=== PATIENT | male | born 1955 | race Caucasian/White ===

== ENCOUNTER → 2017-02-13 | Outpatient (CLI) | payer BC, OTHER ==
--- NOTE | 2017-02-13 17:33 | PN ---
PROGRESS NOTE A 61-year-old male patient diagnosed as having obstructive sleep apnea coming in for a compliancy check. His disease is moderate to severe. AHI is 50 and worse in the supine body position. He was given CPAP at a pressure of 11 cm of water. On today's followup the patient is doing great. He is looking forward to go to sleep to uses his CPAP machine. His sleep quality is improved. His snoring has resolved. He is waking up alert and awake. He does not fall asleep while driving. He has lost 3 pounds. Compliance data shows that average CPAP use around 7.8 hours per night. The leak is only 20 L/minutes while using AirFit P10 nose mask and his AHI while on treatment is down to 0.2. PHYSICAL EXAMINATION: BP is 129/72, pulse is 70, respirations 16, weight is 266, temperature 98.4. Rifle score is 2. Saturation 94% on room air. GENERAL APPEARANCE: Calm, comfortable, in no acute distress. HEENT: Negative for JVD. No goiter or neck masses. LUNGS: Clear to auscultation. HEART: Sounds regular rhythm. Normal S1, S2. No S3, S4. No murmurs. ABDOMEN: Soft, nontender. No organomegaly. EXTREMITIES: No edema. No cyanosis or clubbing. NEUROLOGIC: AOx3. No focal neurological deficits. SKIN: Negative for any wounds or ulcers. IMPRESSION: Symptomatic obstructive sleep apnea, moderate in severity. AHI of 50 worse in the supine body position. The patient is receiving successful CPAP therapy at a pressure of 11 cm of water. PLAN: 1. Continue CPAP with a pressure of 11. 2. Encourage weight loss. 3. Compliance data was checked and treatment is satisfactory. 4. We will see him back in followup in a year's time if needed. Otherwise follow up with primary care physician. MMODL / IJN: [id number] /
== END ==
LOC: SLEEP 16:06
PROVIDERS: ATTEND Internal Medicine Critical Care Medicine
DX: G47.33 Obstructive sleep apnea (adult) (pediatric) (principal)

== ENCOUNTER 2021-06-24 16:04 | Emergency (ER) | payer BC ==
[2021-06-24] MEDS ORDERED: SODIUM CHLORIDE 0.9% 1,000 ML IV STA (16:24)
[2021-06-24] MEDS ORDERED: KETOROLAC 15 MG/ML 1 ML VIAL IVP STA (16:24)
--- NOTE | 2021-06-24 16:24 | ED ---
General Adult HPI - General Chief complaint: Urogenital Stated complaint: kidney stones Time Seen by Provider: 06/24/21 16:15 Source: patient, RN notes reviewed, old records reviewed Mode of arrival: ambulatory Limitations: no limitations - History of Present Illness Initial comments: 66-year-old male presents with left flank pain for one week. Patient states he was told he had an obstructive kidney stone on the left at [facility] yesterday. They wanted to send him to [facility] for stenting but he opted not to go. He came here with increased left flank pain hoping that we could treat him without having to go to [place] for the procedure. He denies any fevers or vomiting does have some nausea with pain. He has been taking [place] and Flomax with no relief. -: week(s) (1) Location: left (flank) Radiation: non-radiation Severity scale (1-10): 6 Consistency: constant Improves with: none Worsens with: none Associated Symptoms: nausea/vomiting Treatments Prior to Arrival: other ([facility] yesterday had CAT scan labs drawn) - Related Data Previous Rx's Medication Instructions Recorded Ibuprofen [Motrin] 800 mg PO Q6HR #30 tab 06/24/21 Allergies Allergy/AdvReac Type Severity Reaction Status Date / Time hydromorphone [From Dilaudid] Allergy Hallucinati Verified 06/24/21 16:05 ons Review of Systems ROS Statement: Those systems with pertinent positive or pertinent negative responses have been documented in the HPI. ROS Other: All systems not noted in ROS Statement are negative. Past Medical History Past Medical History: Diabetes Mellitus, Hyperlipidemia, Hypertension History of Any Multi-Drug Resistant Organisms: None Reported Past Surgical History: Heart Catheterization With Stent Additional Past Surgical History / Comment(s): AAA, heart valve, cabg Past Psychological History: No Psychological Hx Reported Smoking Status: Never smoker Past Alcohol Use History: None Reported Past Drug Use History: None Reported General Exam Limitations: no limitations General appearance: alert, in no apparent distress Respiratory exam: Present: normal lung sounds bilaterally. Absent: respiratory distress, accessory muscle use Cardiovascular Exam: Present: regular rate GI/Abdominal exam: Present: soft, distended, normal bowel sounds. Absent: tenderness, rigid Back exam: Present: normal inspection, full ROM, CVA tenderness (L). Absent: tenderness, CVA tenderness (R), rash noted Neurological exam: Present: alert, oriented X3 Psychiatric exam: Present: normal affect, normal mood Skin exam: Present: warm, dry, normal color. Absent: cyanosis, diaphoretic Course Vital Signs 06/24/21 06/24/21 16:06 18:35 Temperature 98.7 F 98.1 F Pulse Rate 94 90 Respiratory 20 16 Rate Blood Pressure 184/82 168/78 O2 Sat by Pulse 97 98 Oximetry Medical Decision Making - Medical Decision Making Patient presents to the emergency room with left flank pain after diagnosed yesterday at [facility] with an obstructing kidney stone. Ultrasound of the renals and bladder show no renal calculi. There is no evidence of hydronephrosis on the right or left kidney. There is an asymmetrically larger left kidney which may be seen with infection. However there is no evidence of leukocytosis. Urinalysis shows no evidence of infection. Patient is afebrile. He states he has no pain at this time after Toradol and IV fluids were given. He was directed to follow-up with urology and continue his Flomax. A prescription for Motrin was given. Case discussed with Dr. Sanchez. Patient is agreeable to this plan of care. - Lab Data Result diagrams: 06/24/21 17:21 06/24/21 17:21 Lab Results 06/24/21 06/24/21 06/24/21 Range/Units 17:21 17:21 17:21 WBC 7.0 (3.8-10.6) k/uL RBC 5.07 (4.30-5.90) m/uL Hgb 15.9 (13.0-17.5) gm/dL Hct 46.2 (39.0-53.0) % MCV 91.3 (80.0-100.0) fL MCH 31.4 (25.0-35.0) pg MCHC 34.4 (31.0-37.0) g/dL RDW 13.5 (11.5-15.5) % Plt Count 109 L (150-450) k/uL MPV 7.2 Neutrophils % 80 % Lymphocytes % 9 % Monocytes % 7 % Eosinophils % 1 % Basophils % 0 % Neutrophils # 5.6 (1.3-7.7) k/uL Lymphocytes # 0.7 L (1.0-4.8) k/uL Monocytes # 0.5 (0-1.0) k/uL Eosinophils # 0.1 (0-0.7) k/uL Basophils # 0.0 (0-0.2) k/uL Sodium 137 (137-145) mmol/L Potassium 4.0 (3.5-5.1) mmol/L Chloride 102 (98-107) mmol/L Carbon Dioxide 24 (22-30) mmol/L Anion Gap 11 mmol/L BUN 16 (9-20) mg/dL Creatinine 1.62 H (0.66-1.25) mg/dL Est GFR (CKD-EPI)AfAm 51 (>60 ml/min/1.73 sqM) Est GFR (CKD-EPI)NonAf 44 (>60 ml/min/1.73 sqM) Glucose 100 H (74-99) mg/dL Plasma Lactic Acid Jerrell (0.7-2.0) mmol/L Calcium 9.0 (8.4-10.2) mg/dL Total Bilirubin 1.0 (0.2-1.3) mg/dL AST 24 (17-59) U/L ALT 16 (4-49) U/L Alkaline Phosphatase 84 (38-126) U/L Total Protein 6.7 (6.3-8.2) g/dL Albumin 4.0 (3.5-5.0) g/dL Urine Color Yellow Urine Appearance Clear (Clear) Urine pH 5.5 (5.0-8.0) Ur Specific [place] 1.022 (1.001-1.035) Urine Protein 1+ H (Negative) Urine Glucose (UA) Negative (Negative) Urine Ketones Negative (Negative) Urine Blood Small H (Negative) Urine Nitrite Negative (Negative) Urine Bilirubin Negative (Negative) Urine Urobilinogen <2.0 (<2.0) mg/dL Ur Leukocyte Esterase Negative (Negative) Urine RBC 1 (0-5) /hpf Urine WBC 1 (0-5) /hpf Urine Bacteria Rare H (None) /hpf Urine Mucus Rare H (None) /hpf 06/24/21 Range/Units 17:21 WBC (3.8-10.6) k/uL RBC (4.30-5.90) m/uL Hgb (13.0-17.5) gm/dL Hct (39.0-53.0) % MCV (80.0-100.0) fL MCH (25.0-35.0) pg MCHC (31.0-37.0) g/dL RDW (11.5-15.5) % Plt Count (150-450) k/uL MPV Neutrophils % % Lymphocytes % % Monocytes % % Eosinophils % % Basophils % % Neutrophils # (1.3-7.7) k/uL Lymphocytes # (1.0-4.8) k/uL Monocytes # (0-1.0) k/uL Eosinophils # (0-0.7) k/uL Basophils # (0-0.2) k/uL Sodium (137-145) mmol/L Potassium (3.5-5.1) mmol/L Chloride (98-107) mmol/L Carbon Dioxide (22-30) mmol/L Anion Gap mmol/L BUN (9-20) mg/dL Creatinine (0.66-1.25) mg/dL Est GFR (CKD-EPI)AfAm (>60 ml/min/1.73 sqM) Est GFR (CKD-EPI)NonAf (>60 ml/min/1.73 sqM) Glucose (74-99) mg/dL Plasma Lactic Acid Jerrell 1.3 (0.7-2.0) mmol/L Calcium (8.4-10.2) mg/dL Total Bilirubin (0.2-1.3) mg/dL AST (17-59) U/L ALT (4-49) U/L Alkaline Phosphatase (38-126) U/L Total Protein (6.3-8.2) g/dL Albumin (3.5-5.0) g/dL Urine Color Urine Appearance (Clear) Urine pH (5.0-8.0) Ur Specific [place] (1.001-1.035) Urine Protein (Negative) Urine Glucose (UA) (Negative) Urine Ketones (Negative) Urine Blood (Negative) Urine Nitrite (Negative) Urine Bilirubin (Negative) Urine Urobilinogen (<2.0) mg/dL Ur Leukocyte Esterase (Negative) Urine RBC (0-5) /hpf Urine WBC (0-5) /hpf Urine Bacteria (None) /hpf Urine Mucus (None) /hpf Disposition Clinical Impression: Kidney stone on left side Disposition: HOME SELF-CARE Condition: Good Instructions (If sedation given, give patient instructions): Kidney Stones (ED) Additional Instructions: Continue taking the Flomax as previously prescribed. Take the Motrin as prescribed today. Increase your fluid intake. Follow-up with urology and your primary care doctor next week. Return to the emergency room with any new or concerning symptoms including increased pain, fevers or inability to urinate. Prescriptions: Ibuprofen [Motrin] 800 mg PO Q6HR #30 tab Is patient prescribed a controlled substance at d/c from ED?: No Referrals: Akilah Sauer MD [Primary Care Provider] - 1-2 days Ramy Pradhan MD [STAFF PHYSICIAN] - 1-2 days Time of Disposition: 18:08
[2021-06-24 17:29] LABS: Basophils % (A) 0 %; Eosinophils # (A) 0.1 k/uL (0-0.7); Eosinophils % (A) 1 %; HCT 46.2 % (39.0-53.0); HGB 15.9 gm/dL (13.0-17.5); Lymphocytes # (A) 0.7 k/uL (1.0-4.8); Lymphocytes % (A) 9 %; MCH 31.4 pg (25.0-35.0); MCHC 34.4 g/dL (31.0-37.0); MCV 91.3 fL (80.0-100.0); Mean Platelet Volume 7.2; Monocytes # (A) 0.5 k/uL (0-1.0); Monocytes % (A) 7 %; Neutrophils # (A) 5.6 k/uL (1.3-7.7); Neutrophils % (A) 80 %; Platelet Count 109 k/uL (150-450); RBC 5.07 m/uL (4.30-5.90); RDW 13.5 % (11.5-15.5)
[2021-06-24 17:36] LABS: Appearance,Urine Clear (Clear); Bacteria,Urine Rare /hpf; Bilirubin,Urine Negative (Negative); Blood,Urine Small (Negative); Color,Urine Yellow; Glucose,Urine (UA) Negative (Negative); Ketones,Urine Negative (Negative); Leukocyte Esterase,Urine Negative (Negative); Mucus,Urine Rare /hpf; Nitrite,Urine Negative (Negative); PH, Urine 5.5 (5.0-8.0); Protein,Urine 1+ (Negative); RBC,Urine 1 /hpf (0-5); Specific Gravity,Urine 1.022 (1.001-1.035); Urobilinogen,Urine <2.0 mg/dL (<2.0); WBC,Urine 1 /hpf (0-5)
[2021-06-24 17:38] LABS: Total Protein 6.7 g/dL (6.3-8.2)
--- NOTE | 2021-06-24 17:49 | US ---
EXAMINATION TYPE: US renals and bladder DATE OF EXAM: 06/24/2021 COMPARISON: NONE CLINICAL HISTORY: uti, back pain, hx of kidney stones. EXAM MEASUREMENTS: Right Kidney: 11.5 x 5.9 x 4.9 cm Left Kidney: 13.2 x 7.0 x 7.7 cm Right Kidney: No hydronephrosis shadowing calculi, or renal mass seen. Left Kidney: No hydronephrosis shadowing calculi or masses seen Bladder: not seen, patient had just voided IMPRESSION: No renal collecting system or shadowing calculi seen. Asymmetrically larger left kidney, non- specific but may be seen with infection.
[2021-06-24 18:36] VITALS: BP 168/78; PULSE 90; RESP 16; TEMP 98.1
== END 2021-06-24 18:35 | disposition home or self-care (01) ==
LOC: EC 16:04
DX: N20.0 Calculus of kidney (principal); I10 Essential (primary) hypertension; E11.9 Type 2 diabetes mellitus without complications; Z88.5 Allergy status to narcotic agent
CPT/HCPCS: 36415; 80053; 83605; 85025; 81001; 76770; 99284; 96374; 96361; J1885

== ENCOUNTER → 2021-07-14 | Outpatient (CLI) | payer BC ==
--- NOTE | 2021-07-14 12:35 | CT ---
EXAMINATION TYPE: CT abdomen pelvis wo con DATE OF EXAM: 07/14/2021 HISTORY: microhematuria CT DLP: 1132 mGycm. Automated Exposure Control for Dose Reduction was Utilized. TECHNIQUE: CT scan of the abdomen and pelvis is performed without oral or IV contrast. COMPARISON: Renal ultrasound JUNE 24, 2021 FINDINGS: Within the limitations of a non-contrast study, the following observations are made. LUNG BASES: Overlying sternal wires are partially imaged. Partial visualization of metallic aortic va lve. LIVER/GB: Small dependent calcified gallstones. PANCREAS: No significant abnormality is seen. SPLEEN: No significant abnormality is seen. ADRENALS: No significant abnormality is seen. KIDNEYS: There is 1.7 cm low dense lesion medially in the mid to lower pole level right kidney paz l image 66 favoring benign thin-walled cyst. Similar type lesion seen bilaterally upper and midpole o f the right kidney axial image 59. No right-sided nephrolithiasis. There are 2 nonobstructing left re nal calculi including a larger 8 mm calculus upper to mid pole level axial image 54. There is obstruc ting 7 mm calculus in the proximal to mid left ureter on image 77 causing mild left-sided hydronephro sis particularly lower pole collecting system. No right-sided hydronephrosis is seen. No intraluminal calculi in the bladder. BOWEL: Moderate to large size hiatal hernia. Normal-appearing appendix from the cecum. No suspicious small or large bowel dilatation. Diverticula in the proximal sigmoid colon. GENITAL ORGANS: Mildly enlarged prostate bulging on bladder base. LYMPH NODES: No greater than 1cm abdominal or pelvic lymph nodes are appreciated. OSSEOUS STRUCTURES: Moderate axial joint space loss with mild to moderate acetabular spurring of both hips. Moderate multilevel spurring in the thoracolumbar spine. OTHER: Small sized fat-containing bilateral inguinal hernias. Mild to moderate calcified plaque of th e aorta extends into branch vessels. Tiny fat-containing umbilical hernia. IMPRESSION: Left-sided nephrolithiasis. Obstructing 7 mm calculus proximal to mid left ureter causing mild left-sided hydronephrosis.
== END | disposition home or self-care (01) ==
LOC: RADCTMAIN 11:46
PROVIDERS: ATTEND Urology
DX: N13.2 Hydronephrosis with renal and ureteral calculous obstruction (principal)
CPT/HCPCS: 74176

== ENCOUNTER → 2021-07-15 | Day surgery (SDC) | payer BC ==
[~2021-07-15] MED LIST: DEXAMETHASONE SOD PHOSPHATE 4 MG/ML 1 ML VIAL IVP ONE; IOHEXOL 350 MG/ML 50 ML in EMPTY BAG 1 BAG IRRIGATION ONE; LACTATED RINGERS 1,000 ML IV ONE; LIDOCAINE 1% INJ 10MG/ML (20 ML MDV) ONE; MIDAZOLAM 2 MG/2 ML VIAL ONE; ONDANSETRON 4 MG/2 ML VIAL IVP ONE; ONDANSETRON 4 MG/2 ML VIAL ONE; PROPOFOL 10 MG/ML 20 ML VIAL IV ONE; SUCCINYLCHOLINE CHLORIDE 100 MG/5 ML SYR IV ONE; fentaNYL (PF) 50 MCG/ML 2 ML AMP ONE; traMADol 50 MG TAB ONE; traMADol 50 MG TAB PO ONE
--- NOTE | 2021-07-15 10:02 | P.HPIHPCON ---
History of Present Illness H&P Date: 07/15/21 Chief Complaint: Bilateral ureteral stone 66 yo hx of bilateral ureteral stone, 7mm on each side and 8mm left sided renal stone. stone on the left side causing hydronephrosis. Discussed with him given the finding of bilateral ureteral stones and recommend proceeding with i ntervention. Discussed with him the option of a bilateral ureteroscopy and holmium laser. Discussed the risks which includes but not limited to bleeding, infection, injury to the ureter. Discussed also risks of anesthesia. Discussed given his stone burden the potential of needing additional procedures. He understood all the risk and agreed to proceed with bilateral ureteroscopy with holmium laser lithotripsy, stone basketing and stent Consent for Procedure: I have explained the operation/procedure to the patient, including the risks, benefits, side effects, alternative therapies (including not receiving the proposed treatment or service), the likelihood of the patient achieving his/her goals, and potential recuperation problems for the procedure/sedation/analgesia, as well as any blood products, if indicated. I also explained to the patient the risks, benefits and side effects of the alternatives, as well as the risks related to not receiving the proposed procedure, care, treatment, or services. Past Medical History Past Medical History: Diabetes Mellitus, Hearing Disorder / Deafness, Hyperlipidemia, Hypertension, Myocardial Infarction (DC) Additional Past Medical History / Comment(s): KIDNEY STONE, DC 1997, Last Myocardial Infarction Date:: 1997 History of Any Multi-Drug Resistant Organisms: None Reported Past Surgical History: Heart Catheterization With Stent Additional Past Surgical History / Comment(s): AAA SX 2007, heart valve 2018, cabg-DOUBLE BYPASS Past Anesthesia/Blood Transfusion Reactions: No Reported Reaction Date of Last Stent Placement:: 2007 Past Psychological History: No Psychological Hx Reported Smoking Status: Never smoker Past Alcohol Use History: None Reported Past Drug Use History: None Reported Medications and Allergies Home Medications Medication Instructions Recorded Confirmed Type Aspirin EC [Ecotrin Low Dose] 81 mg PO DAILY 07/15/21 07/15/21 History Atorvastatin Calcium [Lipitor] 80 mg PO HS 07/15/21 07/15/21 History Cholecalciferol [Vitamin D3 (25 25 mcg PO DAILY 07/15/21 07/15/21 History Mcg = 1000 Iu)] Clopidogrel Bisulfate [Plavix] 75 mg PO DAILY 07/15/21 07/15/21 History Cyanocobalamin (Vitamin B-12) 1,000 mcg PO DAILY 07/15/21 07/15/21 History [Vitamin B-12] Docusate [Colace] 1 tab PO HS 07/15/21 07/15/21 History Ferrous Sulfate [Feosol] 325 mg PO DAILY 07/15/21 07/15/21 History Loratadine [Claritin] 10 mg PO DAILY 07/15/21 07/15/21 History Metoprolol Tartrate [Lopressor] 100 mg PO BID 07/15/21 07/15/21 History Omeprazole 20 mg PO DAILY 07/15/21 07/15/21 History busPIRone HCL 10 mg PO BID 07/15/21 07/15/21 History glipiZIDE XL [Glucotrol Xl] 10 mg PO DAILY 07/15/21 07/15/21 History lisinopriL 10 mg PO DAILY 07/15/21 07/15/21 History metFORMIN HCL 500 mg PO BID 07/15/21 07/15/21 History Allergies Allergy/AdvReac Type Severity Reaction Status Date / Time hydromorphone [From Dilaudid] Allergy Hallucinati Verified 07/15/21 08:25 ons Surgical - Exam - General no distress, no pain - Eyes normal ocular movement - Respiratory normal expansion, normal respiratory effort - Abdomen Abdomen: soft, non tender - Psychiatric oriented to time, oriented to person, oriented to place Assessment and Plan Assessment: OR for bilateral ureteroscopy, holmium laser lithotripsy, stone basketing and stent insertion
[2021-07-15 14:52] VITALS: RESP 16
[2021-07-15 15:00] LABS: Glucose,Whole Blood 111 mg/dL (75-99)
--- NOTE | 2021-07-15 18:20 | P.OP ---
Date of Procedure: 07/15/21 Preoperative Diagnosis: Bilateral ureteral stone, left renal stone Postoperative Diagnosis: Same Procedure(s) Performed: Cystoscopy, bilateral ureteroscopy, holmium laser lithotripsy, stone basketing and stent insertion Implants: 6-[place]ian by 26 cm stent bilaterally left on a string Anesthesia: MARIAN Surgeon: Ramy Pradhan Estimated Blood Loss (ml): 5 Pathology: other (bilateral ureteral stone, left renal stone) Condition: stable Disposition: PACU Indications for Procedure: 66 yo hx of bilateral ureteral stone, 7mm on each side and 8mm left sided renal stone. stone on the left side causing hydronephrosis. Discussed with him given the finding of bilateral ureteral stones and recommend proceeding with intervention. Discussed with him the option of a bilateral ureteroscopy and holmium laser. Discussed the risks which includes but not limited to bleeding, infection, injury to the ureter. Discussed also risks of anesthesia. Discussed given his stone burden the potential of needing additional procedures. He understood all the risk and agreed to proceed with bilateral ureteroscopy with holmium laser lithotripsy, stone basketing and stent Operative Findings: Bilateral midureteral stone, and a large left renal stone in the upper pole Description of Procedure: Patient brought to the operating room, general anesthesia was induced. He was prepped and draped in sterile fashion and placed in dorsal lithotomy position. Cystoscopy fitted with a 21-[place] sheath was inserted per urethra, cystoscopy was performed which showed no abnormality within the bladder. Attention was then carried to the right ureteral orifice which was intubated with a sensor wire. Next a ureteral balloon dilator was passed over the wire, and the ureteral orifice was dilated using the 12-[place] balloon dilator under fluoroscopy. Next the balloon dilator was removed with the wire in place. Next a semirigid ureteroscope was inserted per urethra and advanced up the right ureteral orifice, a large stone was encountered in the mid ureter. Using the holmium laser the stone was fragmented into small fragments, sizable fragments were removed and sent for analysis. At this time the ureteroscope was advanced all the way up to the UPJ which showed no additional stones. Pullback ureteroscopy was performed showed no injury to the ureter or any sizable fragments. At this time the attention was carried to the left ureteral orifice which was intubated with a sensor wire using the ureteroscope. Next the ureteroscope was withdrawn and a balloon dilator was passed over the wire, to the distal ureter. Using the balloon dilator the ureteral orifice and the distal ureter was dilated under fluoroscopy. Next the balloon dilator was removed with the wire in place. Next a semirigid ureteroscope was inserted through the urethra and advanced up the left ureteral orifice, the stone was encountered in the mid ureter. Using the holmium laser the stone was fragmented into small fragments, sizable fragments were removed and sent for analysis. At this time the ureteroscope was advanced to the proximal ureter which showed no additional sizable fragments. Pullback ureteroscopy was performed which showed no injury to the ureter or sizable ureteral fragments. As the ureteroscope was withdrawn and a sensor wire was advanced through. Next a 1113 [place]ian access sheath was passed over the wire and into the proximal ureter. Next a flexible ureteroscope was inserted through the access sheath, renoscopy was performed showed a large stone in the upper pole. Using the holmium laser the stone was fragmented into small fragments, sizable fragments were removed using the stone basket. Repeat renoscopy showed no sizable fragments or injury to the kidney. Pullback ureteroscopy was performed showed no injury to the ureter or any sizable fragments. Next a ureteral stent was passed bilaterally, the proximal curl was visualized on fluoroscopy and the distal curl was visualized and cystoscope. The stents were left on a string and taped to the patient penis. The bladder was emptied and of the case. Patient tolerated procedure well was taken to recovery in stable condition
[2021-07-15 18:21] VITALS: TEMP 96.8
[2021-07-15 19:06] VITALS: BP 180/77; PULSE 79
--- NOTE | 2021-07-16 07:20 | FL ---
EXAMINATION TYPE: FL guidance operating room DATE OF EXAM: 07/15/2021 CLINICAL HISTORY: Renal calculi. TECHNIQUE: Fluoroscopy. COMPARISON: CT abdomen and pelvis one day earlier. FINDINGS: Fluoroscopic guidance was provided during cystoscopy with bilateral lithotripsy and stent insertion procedure performed by Dr. Pradhan. A total of 25 seconds of fluoroscopic time was utilized during the procedure and 1 spot images was acquired. Single image acquired shows portion of bilatera l distal ureter stents overlying the pelvis. IMPRESSION: As Above.
== END | disposition home or self-care (01) ==
LOC: OR 14:30
PROVIDERS: ATTEND Urology
DX: N20.2 Calculus of kidney with calculus of ureter (principal); N13.2 Hydronephrosis with renal and ureteral calculous obstruction; E11.9 Type 2 diabetes mellitus without complications; H91.90 Unspecified hearing loss, unspecified ear; E78.5 Hyperlipidemia, unspecified; I10 Essential (primary) hypertension; I25.2 Old myocardial infarction; Z87.442 Personal history of urinary calculi; G47.33 Obstructive sleep apnea (adult) (pediatric); K21.9 Gastro-esophageal reflux disease without esophagitis; Z79.84 Long term (current) use of oral hypoglycemic drugs; Z95.5 Presence of coronary angioplasty implant and graft; Z95.2 Presence of prosthetic heart valve; Z95.1 Presence of aortocoronary bypass graft; Z79.02 Long term (current) use of antithrombotics/antiplatelets; Z79.82 Long term (current) use of aspirin; Z79.899 Other long term (current) drug therapy; Z88.5 Allergy status to narcotic agent
CPT/HCPCS: 82365; 52356; C2625; C1769; J2250; J1100; J0690; J2405; J2001; J3010; J0330; J2704; Q9967